=== PATIENT | male | born 1965 | race African-American/Black ===

== ENCOUNTER 2022-12-22 21:43 | Emergency (ER) | payer SELFPAY ==
[2022-12-22 22:15] LABS: Bacteria/HPF None Seen HPF (None Seen); Bilirubin Negative (Negative); Blood, Urine Negative (Negative); CAUTI Indications for Culture Dysuria,urgency,freq; Clarity Clear (Clear); Glucose, Urine (Dipstick) Greater than 1000 mg/dL (Negative); Ketone, Urine Negative (Negative); Leukocyte Negative Leu/uL (Negative); Nitrite Negative (Negative); Protein, Urine (Dipstick) Negative (Neg-Trace); RBC/HPF None Seen HPF (0-3); Specific Gravity, Urine 1.018 (1.002-1.036); Squamous Epithelial None Seen HPF (0-3); Urobilinogen Normal mg/dL (Less than 2); WBC/HPF 0-3 HPF (0-3)
[2022-12-22 22:18] LABS: Urine Culture Reflex No No
[2022-12-22 22:38] LABS: #Basophils 0.1 thou/uL (0.0-0.2); #Eosinphils 0.1 thou/uL (0.0-0.7); #Neutrophils 6.2 thou/uL (1.40-6.50); %Basophils 0.7 % (0.0-1.0); %Eosinophils 1.5 % (0.0-10.0); %Lymphocytes 20.7 % (21.0-51.0); %Monocytes 10.6 % (0.0-10.0); %Neutrophils 65.9 % (42.0-75.0); Hemoglobin 17.7 g/dL (14.0-18.0); Mean Corpuscular HGB CONC 35.4 g/dL (32.0-36.0); Mean Corpuscular Hemoglobin 31.1 pg (27.0-31.0); Mean Corpuscular Volume 87.7 fl (78.0-98.0); Mean Platelet Volume 9.7 fL (7.4-10.4); Platelet Count 158 10x3/uL (130-400); RBC Distribution Width 12.8 % (11.5-14.5); White Blood Cell (WBC) Count 9.4 10x3/uL (4.8-10.8)
[2022-12-22 22:41] LABS: Actual Bicarbonate (HCO3v) 18.6 mEq/L (22-28); Base Excess -0.6 mEq/L (-2.0 to +3.0); Calcium, Ionized (venous) 1.02 mmol/L (1.16-1.32); Chloride (VBG) 96 mmol/L (98-106); Hematocrit-VBG 55 % (42.0-52.0); Hemoglobin (Hb) 18.8 g/dL (13.1-17.2); Potassium (VBG) 4.62 mmol/L (3.70-5.30); Sodium 128.2 mmol/L (133-146); pH (venous) 7.555 (7.32-7.43)
[2022-12-22 22:56] LABS: ALT (SGPT) 23 U/L (8-55); AST (SGOT) 17 U/L (5-34); Albumin 3.6 g/dL (3.5-5.0); Alkaline Phosphatase 113 U/L (40-110); Anion Gap 14 mmol/L (10-20); BUN (Urea Nitrogen) 13 mg/dL (8.4-25.7); Bilirubin, Total 0.5 mg/dL (0.2-1.2); Calc. Creatinine Clearance 0 mL/min (70-130); Calcium 9.5 mg/dL (7.8-10.44); Carbon Dioxide 21 mmol/L (22-29); Chloride 95 mmol/L (98-107); Estimated GFR 34; Globulin 2.8 g/dL (2.4-3.5); Potassium 4.7 mmol/L (3.5-5.1); Protein, Total 6.4 g/dL (6.0-8.3); Sodium 125 mmol/L (136-145)
[2022-12-22 22:58] LABS: Troponin I Less than 0.010 ng/mL (< 0.028)
[2022-12-22 23:00] LABS: Glucose 637 mg/dL (70-105)
[2022-12-23 00:05] LABS: Magnesium 2.3 mg/dL (1.6-2.6)
[2022-12-23] MEDS ORDERED: Insulin Regular 300 UNITS/3 ML VIAL ONE (00:50)
== END 2022-12-23 04:29 | disposition home or self-care (01) ==
LOC: ERS 21:43
DX: E11.65 Type 2 diabetes mellitus with hyperglycemia (principal); K21.9 Gastro-esophageal reflux disease without esophagitis; I10 Essential (primary) hypertension; F17.210 Nicotine dependence, cigarettes, uncomplicated; Z79.899 Other long term (current) drug therapy; Z79.84 Long term (current) use of oral hypoglycemic drugs
CPT/HCPCS: 36415; 36416; 71045; 80053; 81001; 82010; 82805; 83735; 84484; 85025; 93005; 96361; 96374; J1815

== ENCOUNTER 2022-12-27 00:16 | Observation (INO) | payer SELFPAY ==
[2022-12-27] MEDS ORDERED: Ketorolac Tromethamine 30 MG/ML VIAL ONE (00:47)
[2022-12-27 01:24] LABS: #Eosinphils 0.1 thou/uL (0.0-0.7); #Monocytes 0.7 thou/uL (0.11-0.59); #Neutrophils 3.7 thou/uL (1.40-6.50); %Basophils 0.6 % (0.0-1.0); %Eosinophils 1.5 % (0.0-10.0); %Lymphocytes 13.7 % (21.0-51.0); %Monocytes 12.4 % (0.0-10.0); %Neutrophils 70.8 % (42.0-75.0); Hematocrit 41.6 % (42.0-52.0); Hemoglobin 14.7 g/dL (14.0-18.0); Mean Corpuscular HGB CONC 35.3 g/dL (32.0-36.0); Mean Corpuscular Hemoglobin 31.1 pg (27.0-31.0); Mean Corpuscular Volume 88.1 fl (78.0-98.0); Mean Platelet Volume 9.7 fL (7.4-10.4); Platelet Count 156 10x3/uL (130-400); RBC Distribution Width 12.6 % (11.5-14.5); Red Blood Cell (RBC) Count 4.72 mill/uL (4.70-6.10); White Blood Cell (WBC) Count 5.2 10x3/uL (4.8-10.8)
[2022-12-27 01:49] LABS: ALT (SGPT) 18 U/L (8-55); AST (SGOT) 14 U/L (5-34); Alkaline Phosphatase 140 U/L (40-110); Anion Gap 16 mmol/L (10-20); BUN (Urea Nitrogen) 15 mg/dL (8.4-25.7); Bilirubin, Total 0.7 mg/dL (0.2-1.2); Calc. Creatinine Clearance 0 mL/min (70-130); Calcium 8.5 mg/dL (7.8-10.44); Carbon Dioxide 22 mmol/L (22-29); Chloride 93 mmol/L (98-107); Estimated GFR 33; Globulin 2.3 g/dL (2.4-3.5); Lipase 18 U/L (8-78); Potassium 4.8 mmol/L (3.5-5.1); Protein, Total 5.3 g/dL (6.0-8.3); Sodium 126 mmol/L (136-145)
[2022-12-27 01:52] LABS: Troponin I Less than 0.010 ng/mL (< 0.028)
[2022-12-27 02:01] LABS: Glucose 787 mg/dL (70-105)
[2022-12-27] MEDS ORDERED: INSULIN REGULAR IN 0.9 % NACL 100 UNITS/100 ML BAG ONE (03:08)
[2022-12-27] MEDS ORDERED: Electrolyte Replacement Protocol 1 EACH IVPB SCH (03:33)
[2022-12-27] MEDS ORDERED: Dextrose 5 %-0.45 % NaCl 1,000 ML IV PRN (03:33)
[2022-12-27] MEDS ORDERED: NS 0.9% w/ 20 MEQ KCL 1,000 ML IV PRN ×2 (03:33)
[2022-12-27] MEDS ORDERED: Dextrose 50% Abboject 50 ML SYRINGE SLOW IVP PRN ×2 (03:33→07:09)
[2022-12-27] MEDS ORDERED: D5 1/2 NS w/20 mEq KCL 1,000 ML IV PRN (03:33)
[2022-12-27] MEDS ORDERED: Sodium Chloride 0.9% 1,000 ML IV PRN ×4 (03:33)
[2022-12-27] MEDS ORDERED: HUMULIN R 100 UNITS in Sodium Chloride 0.9% 100 ML IVPB SCH (03:45)
[2022-12-27 03:46] LABS: Bacteria/HPF None Seen HPF (None Seen); Bilirubin Negative (Negative); Blood, Urine 2+ (Negative); CAUTI Indications for Culture Pelvic or flank pain; Clarity Clear (Clear); Glucose, Urine (Dipstick) Greater than 1000 mg/dL (Negative); Ketone, Urine Negative (Negative); Leukocyte Negative Leu/uL (Negative); Nitrite Negative (Negative); Protein, Urine (Dipstick) Negative (Neg-Trace); RBC/HPF 0-3 HPF (0-3); Squamous Epithelial None Seen HPF (0-3); Urobilinogen Normal mg/dL (Less than 2); WBC/HPF 0-3 HPF (0-3)
[2022-12-27 03:47] LABS: Urine Culture Reflex No No
[2022-12-27 04:06] VITALS: BMI 26.6
[2022-12-27 06:08] LABS: Hemoglobin A1c Greater than 14.0 % (4.0-6.0)
[2022-12-27 06:15] LABS: Actual Bicarbonate (HCO3v) 22.6 mEq/L (22-28); Base Excess -3.2 mEq/L (-2.0 to +3.0); Calcium, Ionized (venous) 1.06 mmol/L (1.16-1.32); Chloride (VBG) 94 mmol/L (98-106); Hematocrit-VBG 49 % (42.0-52.0); Hemoglobin (Hb) 16.8 g/dL (13.1-17.2); Potassium (VBG) 4.38 mmol/L (3.70-5.30); Sodium 128.7 mmol/L (133-146); pH (venous) 7.336 (7.32-7.43)
[2022-12-27 06:26] LABS: Anion Gap 12 mmol/L (10-20); BUN (Urea Nitrogen) 14 mg/dL (8.4-25.7); Calc. Creatinine Clearance 63 mL/min (70-130); Calcium 8.4 mg/dL (7.8-10.44); Carbon Dioxide 24 mmol/L (22-29); Chloride 105 mmol/L (98-107); Estimated GFR 49; Glucose 297 mg/dL (70-105); Potassium 3.7 mmol/L (3.5-5.1); Sodium 137 mmol/L (136-145)
[2022-12-27 06:35] LABS: Troponin I Less than 0.010 ng/mL (< 0.028)
[2022-12-27] MEDS ORDERED: Glucagon 1 MG/ML KIT IM PRN (07:09)
[2022-12-27] MEDS ORDERED: HumaLOG 300 UNITS/3 ML VIAL SC PRN ×4 (07:09→11:33)
[2022-12-27] MEDS ORDERED: Dextrose 5% in Water 1,000 ML IV PRN (07:09)
[2022-12-27] MEDS ORDERED: HumuLIN 70/30 100 Unit/ ml 10 ml Vial SC SCH (07:30)
[2022-12-27 08:15] LABS: Amphetamine Not Detected (NotDetected); Barbiturates Screen Not Detected (NotDetected); Benzodiazepine Screen Not Detected (NotDetected); Cocaine Metabolite Screen Detected (NotDetected); Methadone Not Detected (NotDetected); Methamphetamine Not Detected (NotDetected); Opiate Screen Not Detected (NotDetected); Oxycodone Screen Not Detected (NotDetected); Phencyclidine (PCP) Not Detected (NotDetected); THC/Cannabinoid Screen Not Detected (NotDetected); Tricyclic Screen Not Detected (NotDetected)
[2022-12-27 08:23] LABS: Anion Gap 10 mmol/L (10-20); BUN (Urea Nitrogen) 13 mg/dL (8.4-25.7); Calc. Creatinine Clearance 62 mL/min (70-130); Calcium 8.5 mg/dL (7.8-10.44); Carbon Dioxide 28 mmol/L (22-29); Chloride 99 mmol/L (98-107); Estimated GFR 47; Glucose 325 mg/dL (70-105); Potassium 4.4 mmol/L (3.5-5.1); Sodium 133 mmol/L (136-145)
[2022-12-27] MEDS ORDERED: Sodium Chloride 0.9% 1,000 ML IV SCH ×2 (08:30→16:30)
[2022-12-27] MEDS ORDERED: Amlodipine 5 MG TAB ONE (09:58)
[2022-12-27] MEDS: Amlodipine 5 MG TAB PO SCH (10:00)
[2022-12-27] MEDS ORDERED: HumaLOG 300 UNITS/3 ML VIAL ONE (11:23)
[2022-12-27 15:20] LABS: Troponin I Less than 0.010 ng/mL (< 0.028)
[2022-12-27 16:07] LABS: Anion Gap 9 mmol/L (10-20); BUN (Urea Nitrogen) 12 mg/dL (8.4-25.7); Calc. Creatinine Clearance 65 mL/min (70-130); Calcium 8.5 mg/dL (7.8-10.44); Carbon Dioxide 20 mmol/L (22-29); Chloride 101 mmol/L (98-107); Estimated GFR 50; Glucose 347 mg/dL (70-105); Potassium 3.7 mmol/L (3.5-5.1); Sodium 126 mmol/L (136-145)
[2022-12-27] MEDS ORDERED: predniSONE 20 MG TAB PO SCH (16:30)
[2022-12-27] MEDS ORDERED: Insulin Regular 300 UNITS/3 ML VIAL IVP SCH (16:45)
[2022-12-27] MEDS: Heparin 5,000 UNITS/ML VIAL SC SCH ×2 (16:49→21:02)
[2022-12-27] MEDS: metFORMIN 500 MG TAB PO SCH (17:10)
[2022-12-27] MEDS: Sodium Chloride 0.9% 1,000 ML IV SCH (18:24)
[2022-12-27] MEDS: HumuLIN 70/30 100 Unit/ ml 10 ml Vial SC SCH (21:03)
[2022-12-27 21:24] LABS: Anion Gap 10 mmol/L (10-20); BUN (Urea Nitrogen) 13 mg/dL (8.4-25.7); Calc. Creatinine Clearance 63 mL/min (70-130); Calcium 8.1 mg/dL (7.8-10.44); Carbon Dioxide 24 mmol/L (22-29); Chloride 105 mmol/L (98-107); Estimated GFR 49; Glucose 283 mg/dL (70-105); Potassium 4.1 mmol/L (3.5-5.1); Sodium 135 mmol/L (136-145)
[2022-12-28] MEDS: Sodium Chloride 0.9% 1,000 ML IV SCH (05:45)
[2022-12-28 07:53] LABS: #Eosinphils 0.1 thou/uL (0.0-0.7); #Monocytes 0.4 thou/uL (0.11-0.59); #Neutrophils 3.2 thou/uL (1.40-6.50); %Basophils 0.6 % (0.0-1.0); %Eosinophils 2.3 % (0.0-10.0); %Lymphocytes 21.8 % (21.0-51.0); %Monocytes 8.7 % (0.0-10.0); %Neutrophils 66.2 % (42.0-75.0); Hematocrit 39.7 % (42.0-52.0); Hemoglobin 13.6 g/dL (14.0-18.0); Mean Corpuscular HGB CONC 34.3 g/dL (32.0-36.0); Mean Corpuscular Hemoglobin 31.1 pg (27.0-31.0); Mean Corpuscular Volume 90.6 fl (78.0-98.0); Mean Platelet Volume 9.3 fL (7.4-10.4); Platelet Count 143 10x3/uL (130-400); Red Blood Cell (RBC) Count 4.38 mill/uL (4.70-6.10); White Blood Cell (WBC) Count 4.8 10x3/uL (4.8-10.8)
[2022-12-28 08:19] LABS: Anion Gap 10 mmol/L (10-20); BUN (Urea Nitrogen) 15 mg/dL (8.4-25.7); Calc. Creatinine Clearance 67 mL/min (70-130); Calcium 8.8 mg/dL (7.8-10.44); Carbon Dioxide 25 mmol/L (22-29); Chloride 105 mmol/L (98-107); Estimated GFR 52; Glucose 332 mg/dL (70-105); Potassium 4.2 mmol/L (3.5-5.1); Sodium 136 mmol/L (136-145)
[2022-12-28] MEDS: Heparin 5,000 UNITS/ML VIAL SC SCH (08:45)
[2022-12-28] MEDS: HumuLIN 70/30 100 Unit/ ml 10 ml Vial SC SCH (08:48)
[2022-12-28] MEDS: metFORMIN 500 MG TAB PO SCH (08:55)
[2022-12-28] MEDS: Amlodipine 5 MG TAB PO SCH (08:55)
[2022-12-28 12:45] VITALS: BP 119/81; TEMP 98
== END 2022-12-28 14:10 | disposition home or self-care (01) ==
LOC: ERS 00:16 → INTOOBSV 03:29 → ERHOLD 03:29 → 2NO 15:49
PROVIDERS: ADMIT Internal Medicine; ATTEND Internal Medicine
DX: E11.00 Type 2 diabetes mellitus with hyperosmolarity without nonketotic hyperglycemic-hyperosmolar coma (NKHHC) (principal); R07.9 Chest pain, unspecified; I12.9 Hypertensive chronic kidney disease with stage 1 through stage 4 chronic kidney disease, or unspecified chronic kidney disease; N18.9 Chronic kidney disease, unspecified; N17.9 Acute kidney failure, unspecified; K21.9 Gastro-esophageal reflux disease without esophagitis; F17.210 Nicotine dependence, cigarettes, uncomplicated; Z79.4 Long term (current) use of insulin; Z79.899 Other long term (current) drug therapy; Z79.84 Long term (current) use of oral hypoglycemic drugs
CPT/HCPCS: 36415; 36416; 70450; 71045; 80048; 80053; 80306; 81001; 82010; 82805; 83036; 83690; 83880; 83930; 84484; 85025; 85379; 93005; 96361; 96374; 96375; 96376; G0378; J1644; J1815; J1885; J7050

== ENCOUNTER 2023-06-11 19:17 | Emergency (ER) | payer SELFPAY ==
[2023-06-11 20:27] LABS: SARS-CoV-2 NAA Rapid Test Not Detected (NotDetected)
== END 2023-06-11 21:10 | disposition home or self-care (01) ==
LOC: ERS 19:17
DX: J06.9 Acute upper respiratory infection, unspecified (principal); I10 Essential (primary) hypertension; E11.9 Type 2 diabetes mellitus without complications; F17.210 Nicotine dependence, cigarettes, uncomplicated; Z79.84 Long term (current) use of oral hypoglycemic drugs; Z79.4 Long term (current) use of insulin; Z79.899 Other long term (current) drug therapy
CPT/HCPCS: 99283